=== PATIENT | female | born 1940 | race Caucasian/White ===

== ENCOUNTER 2017-05-20 19:32 | Inpatient (IN) | payer MEDICARE ==
[~2017-05-20] VITALS: Ht 157.5 cm; Wt 84.1 kg
[2017-05-20 20:45] LABS: BASOPHILS 0.1 % (0-2); EOSINOPHILS 0 % (0-7); HEMATOCRIT 34.5 % (36.0-48.0); IMMATURE GRANULOCYTES 0.4 % (0-5); LYMPHOCYTES 3.2 % (15-50); MCH 27.9 pg (26.0-34.0); MCHC 31.9 g/dL (31.0-37.0); MCV 87.6 fL (80.0-100.0); MEAN PLATELET VOLUME 9.9 fL (7.4-10.4); MONOCYTES 2.9 % (2-11); NEUTROPHILS 93.4 % (40-80); PLATELET COUNT 297 10x3/uL (130-400); RBC 3.94 10x6/uL (4.00-5.40); RDW 13.5 % (11.5-14.5); WBC 17.3 10x3/uL (4.8-10.8)
[2017-05-20 20:59] LABS: ALBUMIN 3.3 g/dL (3.4-5.0); ANION GAP 14.9 mmol/L (8-16); BILIRUBIN - TOTAL 0.66 mg/dL (0.2-1.3); CALCIUM 8.8 mg/dL (8.5-10.1); CARBON DIOXIDE 24.6 mmol/L (21.0-32.0); CREATININE - SERUM 0.9 mg/dL (0.6-1.3); POTASSIUM - SERUM 4.5 mmol/L (3.5-5.1); PROTEIN - SERUM 6.9 g/dL (6.4-8.2)
[2017-05-20] MEDS ORDERED: MOBIC7.5 MG PO (23:44)
[2017-05-20] MEDS ORDERED: FOLBIC RF TABL1 EACH PO (23:45)
[2017-05-20] MEDS ORDERED: BAYER CHEWABLE81 MG PO (23:45)
[2017-05-21 00:18] VITALS: BP 102/51; Ht 157.5 cm; Wt 84.1 kg
[2017-05-21 04:00] VITALS: BP 122/59
[2017-05-21 05:50] LABS: BASOPHILS 0.1 % (0-2); EOSINOPHILS 0.3 % (0-7); HEMATOCRIT 28.5 % (36.0-48.0); IMMATURE GRANULOCYTES 0.5 % (0-5); LYMPHOCYTES 12.6 % (15-50); MCH 27.8 pg (26.0-34.0); MCHC 31.6 g/dL (31.0-37.0); MEAN PLATELET VOLUME 10.5 fL (7.4-10.4); NEUTROPHILS 80.5 % (40-80); PLATELET COUNT 252 10x3/uL (130-400); RBC 3.24 10x6/uL (4.00-5.40); RDW 13.8 % (11.5-14.5); WBC 14.7 10x3/uL (4.8-10.8)
[2017-05-21 05:55] LABS: ALBUMIN 2.7 g/dL (3.4-5.0); ANION GAP 13.7 mmol/L (8-16); BILIRUBIN - TOTAL 0.53 mg/dL (0.2-1.3); CALCIUM 8.2 mg/dL (8.5-10.1); CARBON DIOXIDE 23.6 mmol/L (21.0-32.0); POTASSIUM - SERUM 4.3 mmol/L (3.5-5.1); PROTEIN - SERUM 6.2 g/dL (6.4-8.2)
--- NOTE | 2017-05-21 07:30 | NUR ---
RECIEVED PT DURING WALKING ROUNDS, PT RESTING IN BED WITH COMPLAINTS OF PAIN OR DISCOMFORT AT THIS TIME. ASSESSMENT DONE PER FLOWSHEET. BED IN LOW POSITION AND CALL LIGHT WITHIN REACH.
[2017-05-21 09:12] VITALS: BP 129/74
[2017-05-21 11:58] LABS: BASOPHILS 0.1 % (0-2); EOSINOPHILS 0.4 % (0-7); HEMATOCRIT 30.6 % (36.0-48.0); HEMOGLOBIN 9.9 g/dL (12-16); IMMATURE GRANULOCYTES 0.4 % (0-5); LYMPHOCYTES 14.6 % (15-50); MCH 28.2 pg (26.0-34.0); MCHC 32.4 g/dL (31.0-37.0); MCV 87.2 fL (80.0-100.0); MEAN PLATELET VOLUME 9.8 fL (7.4-10.4); NEUTROPHILS 78.5 % (40-80); PLATELET COUNT 254 10x3/uL (130-400); RBC 3.51 10x6/uL (4.00-5.40); RDW 13.7 % (11.5-14.5); WBC 15.1 10x3/uL (4.8-10.8)
--- NOTE | 2017-05-21 14:26 | NUR ---
CHECKED PT HCT AT THIS TIME, ABOVE PARAMETERS. WILL CONTINUE TO MONITOR.
[2017-05-21 20:00] VITALS: BP 91/40
[2017-05-22] VITALS (14 sets, daily range): BP systolic 101–141; BP diastolic 37–72
--- NOTE | 2017-05-22 01:00 | NUR ---
PRBC'S INITIATED AT THIS TIME. VSS. INSECT CONTROL AIDE GOOD TO MONITOR. VISITOR AT BEDSIDE. SIDE RAILS X 2. BED IS LOW. CALL LIGHT IN REACH.
--- NOTE | 2017-05-22 01:00 | NUR ---
PATIENT STARTED 1 UNIT PRBC IN LEFT HAND PIV. VSS, AFEBRILE. UNIT OF BLOOD CROSS CHECKED WITH YUDELKA DAS.
[2017-05-22 05:36] LABS: BASOPHILS 0.4 % (0-2); EOSINOPHILS 4.3 % (0-7); HEMATOCRIT 28.1 % (36.0-48.0); HEMOGLOBIN 9.4 g/dL (12-16); IMMATURE GRANULOCYTES 0.4 % (0-5); LYMPHOCYTES 27.6 % (15-50); MCHC 33.5 g/dL (31.0-37.0); MCV 86.7 fL (80.0-100.0); MEAN PLATELET VOLUME 9.8 fL (7.4-10.4); MONOCYTES 6.1 % (2-11); NEUTROPHILS 61.2 % (40-80); RBC 3.24 10x6/uL (4.00-5.40)
[2017-05-22 05:40] LABS: PLATELET COUNT 190 10x3/uL (130-400); WBC 8.3 10x3/uL (4.8-10.8)
[2017-05-22 05:53] LABS: ANION GAP 10.8 mmol/L (8-16); CALCIUM 8.1 mg/dL (8.5-10.1); CARBON DIOXIDE 25.1 mmol/L (21.0-32.0); CREATININE - SERUM 0.8 mg/dL (0.6-1.3); POTASSIUM - SERUM 3.9 mmol/L (3.5-5.1)
[2017-05-22 05:55] LABS: INR 1.13 (0.85-1.17); PROTIME 14.3 SECONDS (11.6-15.0)
--- NOTE | 2017-05-22 07:50 | NUR ---
ASSESSMENT COMPLETE. IV TO L HAND PATENT. NS INFUSING AT 100 CC/HR AND PROTONIX AT 10 CC/HR VIA PUMP. NPO FOR EGD TODAY. FAMILY AT BEDSIDE. DENIES ANY NEEDS AT PRESENT.
--- NOTE | 2017-05-22 11:30 | NUR ---
COMPLAINING OF DIZZINESS AND BLURRY VISION. STATES THAT DIZZINESS STARTED AFTER LOOKING AT DAUGHTER'S PHONE. BLOOD SUGAR 100. VSJulisa. CECILIA SÁNCHEZ NOTIFIED.
--- NOTE | 2017-05-22 11:35 | NUR ---
INSTRUCTED PATIENT TO REST IN BED UNTIL DIZZINESS RESOLVES. BLOOD PRESSURE 146/61.
--- NOTE | 2017-05-22 12:45 | NUR ---
DENIES ANY DIZZINESS AT THIS TIME. RESTING QUIETLY IN BED. BP 107/57.
--- NOTE | 2017-05-22 16:12 | NUR ---
AWAITING EGD TO BE DONE. FAMILY AT BEDSIDE.
--- NOTE | 2017-05-22 16:45 | NUR ---
OFF FLOOR TO GI LAB VIA BED.
--- NOTE | 2017-05-22 18:00 | NUR ---
RETURNED TO ROOM FROM GI LAB VIA BED. FAMILY AT BEDSIDE. AWAKE AND ALERT. DENIES ANY NEEDS AT THIS TIME.
--- NOTE | 2017-05-22 20:00 | NUR ---
ASSESSMENT PER FLOWSHEET. IV PATENT LEFT WRIST OF NS AT 100CC'S/HR PROTONIX GTT AT 10CC'S/HR. SITE CLEAR.DAUGHTER IN ROOM. RESTING QUIETLY DENIES NEEDS.
--- NOTE | 2017-05-22 21:00 | NUR ---
MEDS GIVEN PER MAR.
--- NOTE | 2017-05-22 22:00 | NUR ---
RESULTS OF H&H SHOWS HCT 27.1.
--- NOTE | 2017-05-22 22:45 | NUR ---
IV SWOLLEN REMOVED WITH CATH INTACT. RESITED IN RT FOREARM #22G X1 ATTEMPT. RESUMED FLUIDS.
--- NOTE | 2017-05-22 23:10 | NUR ---
ONE UNIT OF PRBC'S HUNG PER HOSPITAL PROTOCAL. BLOOD PERMIT ALREADY SIGNED AND ON CHART. MONITORING VITAL SIGNS DURING INFUSION.
--- NOTE | 2017-05-23 | NUR ---
BLOOD CONTINUES NO REACTION SEEN.
--- NOTE | 2017-05-23 02:20 | NUR ---
BLOOD COMPLETED NO REACTION NOTED. NS AT KVO TO FLUSH TUBING.
--- NOTE | 2017-05-23 03:15 | NUR ---
BLOOD SET UP REMOVED, IV FLUIDS OF NS RESUMED AT 100CC'S/HR PROTONIX GTT RESUMED AT 10CC'S/HR.
[2017-05-23 04:03] VITALS: BP 148/72
--- NOTE | 2017-05-23 04:10 | NUR ---
EYES CLOSED RESPIRATIONS WITH EASE AND UNLABORED.
[2017-05-23 05:50] LABS: BASOPHILS 0.3 % (0-2); EOSINOPHILS 4.5 % (0-7); HEMATOCRIT 29.6 % (36.0-48.0); HEMOGLOBIN 9.7 g/dL (12-16); IMMATURE GRANULOCYTES 0.5 % (0-5); LYMPHOCYTES 25.3 % (15-50); MCH 28.3 pg (26.0-34.0); MCHC 32.8 g/dL (31.0-37.0); MCV 86.3 fL (80.0-100.0); MEAN PLATELET VOLUME 9.7 fL (7.4-10.4); MONOCYTES 7.3 % (2-11); NEUTROPHILS 62.1 % (40-80); PLATELET COUNT 156 10x3/uL (130-400); RBC 3.43 10x6/uL (4.00-5.40); RDW 14.3 % (11.5-14.5); WBC 6.3 10x3/uL (4.8-10.8)
[2017-05-23 06:18] LABS: ALBUMIN 2.6 g/dL (3.4-5.0); ALKALINE PHOSPHATASE 61 U/L (46-116); ALT (SGPT) 15 U/L (10-68); BILIRUBIN - TOTAL 0.67 mg/dL (0.2-1.3); CALC OSMOLALITY 283 mosm/kg (275-300); CALCIUM 8.2 mg/dL (8.5-10.1); CARBON DIOXIDE 25.1 mmol/L (21.0-32.0); CHLORIDE - SERUM 110 mmol/L (98-107); CREATININE - SERUM 0.7 mg/dL (0.6-1.3); GLUCOSE 95 mg/dL (74-106); POTASSIUM - SERUM 3.6 mmol/L (3.5-5.1); PROTEIN - SERUM 5.9 g/dL (6.4-8.2); SODIUM 142 mmol/L (136-145); eGFR NON AFRICAN AMERICAN 86 mL/min (90-120)
[2017-05-23 06:19] LABS: UREA NITROGEN 15 mg/dL (7-18)
--- NOTE | 2017-05-23 07:55 | NUR ---
ASSESSMENT COMPLETE. IV TO R FA PATENT. NS INFUSING AT 100 CC/HR AND PROTONIX INFUSING AT 10 CC/HR VIA PUMP. DENIES ANY NEEDS AT PRESENT. FAMILY AT BEDSIDE.
[2017-05-23 08:43] VITALS: BP 138/62
--- NOTE | 2017-05-23 10:14 | CN ---
PATIENT NAME:IAN TOUSSAINT MEDICAL RECORD: [id number] : 42 LOCATION:[facility] ADMIT DATE: 05/20/17 ACCOUNT: [id number] CONSULTING PHYSICIAN: SHAHRIAR DAN MD REFERRING PHYSICIAN: RY LOVE MD DATE OF CONSULTATION: 05/21/2017 Gastroenterology Consultation REFERRING PHYSICIAN: Ry Love MD FIRST AID NURSE: Judi Kelly MD HISTORY OF PRESENT ILLNESS: The patient is a 77-year-old white female of Dr. Hoyt, who was admitted last night with 1-day history of melena and hematemesis of coffee-ground material. She has no history of past GI bleed or ulcer disease, but she had been on meloxicam for osteoarthritis. She developed the above symptoms and presented to the ER. She was admitted for further evaluation. She apparently had a colonoscopy by Dr. Kelly about 6 months ago that was unremarkable. PAST MEDICAL HISTORY: As above. PAST SURGICAL HISTORY: Remarkable for cholecystectomy and hysterectomy. ALLERGIES: No known drug allergies. HOME MEDICATIONS: Include meloxicam. FAMILY HISTORY: Negative for GI disease. REVIEW OF SYSTEMS: Noncontributory other than in the HPI. SOCIAL HISTORY: The patient is a nonsmoker, nondrinker. PHYSICAL EXAMINATION: GENERAL: Reveals an elderly white female, in no acute distress. VITAL SIGNS: Stable. She is afebrile. CHEST: Clear. HEART: Regular rate and rhythm. ABDOMEN: Soft, nontender. EXTREMITIES: No edema. LABORATORY DATA: Reveals normal electrolytes, BUN 50, creatinine 0.9. Liver enzymes are normal. Amylase and lipase are normal. White cell count 17,000, hematocrit 34, platelet count 297,000. She is heme positive. IMPRESSION: 1. Apparent upper gastrointestinal bleed, most likely due to meloxicam-induced ulcer. 2. Anemia secondary to #1. RECOMMENDATION: 1. High dose Protonix for now. 2. Clear liquid diet. CONSULT REPORT [id number] AIN TOUSSAINT 3. Obviously avoid all NSAIDs. 4. Transfuse as needed. 5. EGD tomorrow with Dr. Kelly. TRANSINT:[id number] Voice Confirmation ID: [id number] DOCUMENT ID: [id number] SHAHRIAR DAN MD at 1014 CC: RY LOVE MD and JUDI KELLY MD [id number] DICTATION DATE: 05/21/17 1315 LUMBER CARRIER: 05/21/17 1354 ADM IN [facility] [address] [place] [address]
--- NOTE | 2017-05-23 12:00 | NUR ---
NO CHANGES NOTED AT THIS TIME.
[2017-05-23 13:56] VITALS: BP 145/70
[2017-05-23 16:17] VITALS: BP 140/70
--- NOTE | 2017-05-23 17:36 | NUR ---
Patient Name: IAN TOUSSAINT Admission Status: ER Accout number: [id number] Admission Date: 05-20-2017 : 1941 Admission Diagnosis:GASTROINTESTINAL HEMORRHAGE, UNSPECIFIED Attending: KATE Current LOS: 3 Anticipated DC Date: 05-26-2017 Planned Disposition: Home Primary Insurance: [employer] CHOICE PPO MCR [employer] Discharge Planning Comments: CM MET WITH PATIENT AND SPOUSE (TALISHA) REGARDING D/C NEEDS AND PLANS. PATIENT STATED SHE LIVES WITH HER SPOUSE AND THEY HAVE 2 STEPS TO ENTER HOME AND DOES NOT HAVE TO USE BASEMENT. PATIENT STATED SHE IS INDEPENDENT WITH HER CARE AND HAS A WALKER, BS COMMODE, AND SHOWER CHAIR AT HOME. PATIENTS PCP IS DR. CROSS AND [facility] IS [facility]. PATIENT DOES NOT WANT HOME HEALTH AT THIS TIME. CM WILL CONTINUE TO FOLLOW PATIENT WITH D/C NEEDS AND PLANS. PCP [facility]- [phone] TALISHA (SPOUSE) [phone] STEFFANIE () [phone] Package Lift Operator: Raisa Archibald Is the patient Alert and Oriented? Yes 0 * How many steps to enter\exit or inside your home? 2 0 * PCP DR. CROSS 0 * [facility] [place] 0 * Preadmission Environment Home with Family 0 * ADLs Independent 0 * Equipment Bedside Commode Shower Chair Walker 0 * List name and contact numbers for known caregivers / representatives who currently or will assist patient after discharge: TALISHA (SPOUSE) [phone] STEFFANIE 0 * Community resources currently utilized None 0 * Additional services required to return to the preadmission environment? Yes 0 * Can the patient safely return to the preadmission environment? Yes 0 * Has this patient been hospitalized within the prior 30 days at any hospital? No 0 Grand Total: 0
--- NOTE | 2017-05-23 17:55 | NUR ---
VISITING WITH FAMILY. DENIES ANY NEEDS AT PRESENT.
[2017-05-23 20:00] VITALS: BP 111/78
--- NOTE | 2017-05-23 20:00 | NUR ---
ASSESSMENT PER FLOWSHEET. PT SITTING UPRIGHT IN CHAIR AT BEDSIDE SPOUSE AT BEDSIDE. IV PATENT RT FOREARM OF NS AT 100CC'S/HR SITE CLEAR.
--- NOTE | 2017-05-23 21:00 | NUR ---
MEDS GIVEN PER MAR.
--- NOTE | 2017-05-23 22:00 | NUR ---
RESTING QUIETLY IN BED SPOUSE SITTING IN CHAIR AT BEDSIDE. SR UP X2 CALL LIGHT WITHIN REACH.
[2017-05-24] VITALS: BP 128/59
--- NOTE | 2017-05-24 | NUR ---
EYES CLOSED RESPIRATIONS WITH EASE AND UNLABORED.
--- NOTE | 2017-05-24 03:00 | NUR ---
RESTING QUIETLY EYES CLOSED RESPIRATIONS WITH EASE AND UNLABORED.
[2017-05-24 03:47] VITALS: BP 157/80
[2017-05-24 05:17] LABS: BASOPHILS 0.3 % (0-2); HEMATOCRIT 30.9 % (36.0-48.0); HEMOGLOBIN 10.1 g/dL (12-16); IMMATURE GRANULOCYTES 0.3 % (0-5); MCH 28.4 pg (26.0-34.0); MCHC 32.7 g/dL (31.0-37.0); MCV 86.8 fL (80.0-100.0); MEAN PLATELET VOLUME 10.3 fL (7.4-10.4); MONOCYTES 6.8 % (2-11); NEUTROPHILS 57.6 % (40-80); PLATELET COUNT 186 10x3/uL (130-400); RBC 3.56 10x6/uL (4.00-5.40); RDW 14.2 % (11.5-14.5); WBC 6.2 10x3/uL (4.8-10.8)
[2017-05-24 05:37] LABS: ALBUMIN 2.8 g/dL (3.4-5.0); ALKALINE PHOSPHATASE 69 U/L (46-116); ALT (SGPT) 15 U/L (10-68); CALC OSMOLALITY 283 mosm/kg (275-300); CALCIUM 8.2 mg/dL (8.5-10.1); CARBON DIOXIDE 25.2 mmol/L (21.0-32.0); CHLORIDE - SERUM 108 mmol/L (98-107); CREATININE - SERUM 0.7 mg/dL (0.6-1.3); GLUCOSE 93 mg/dL (74-106); POTASSIUM - SERUM 3.9 mmol/L (3.5-5.1); PROTEIN - SERUM 5.6 g/dL (6.4-8.2); SODIUM 143 mmol/L (136-145); eGFR NON AFRICAN AMERICAN 86 mL/min (90-120)
[2017-05-24 05:42] LABS: UREA NITROGEN 10 mg/dL (7-18)
--- NOTE | 2017-05-24 06:39 | NUR ---
MEDS GIVEN PER DEC. RESTING QUIETLY NO CHANGES IN ASSESSMENT.
[2017-05-24 08:42] VITALS: BP 123/63
[2017-05-24 11:58] VITALS: BP 142/64
--- NOTE | 2017-05-24 14:45 | NUR ---
PT LAYING FLAT IN BED, EYES CLOSED. NO VISABLE SINGS OF PAIN OR DISCOMFORT AT THIS TIME. BED IN LOW POSITION AND CALL LIGHT WITHIN REACH. WILL CONTINUE TO MONITOR.
[2017-05-24 15:09] VITALS: BP 121/57
--- NOTE | 2017-05-24 16:16 | NUR ---
CARAFATE PO. NEW BAG OF PROTONIX.
[2017-05-24 20:00] VITALS: BP 106/63
--- NOTE | 2017-05-24 20:00 | NUR ---
ASSESSMENT PER FLOWSHEET. SR UP X2 CALL LIGHT WITHIN REACH. IV PATENT RT ARM OF NS AT 30CC'S/HR PROTONIX GTT AT 10CC'S PER HOUR. UP WITH HELP TO BR VOIDS WELL.
--- NOTE | 2017-05-24 21:30 | NUR ---
MEDS GIVEN PER MAR. SPOUSE AT BEDSIDE. SR UP X2 CALL LIGHT WITHIN REACH.
[2017-05-25] VITALS: BP 124/60
--- NOTE | 2017-05-25 | NUR ---
EYES CLOSED RESPIRATIONS WITH EASE AND UNLABORED.
[2017-05-25 04:00] VITALS: BP 132/62
[2017-05-25 05:59] LABS: BASOPHILS 0.4 % (0-2); EOSINOPHILS 5.8 % (0-7); HEMATOCRIT 32.1 % (36.0-48.0); HEMOGLOBIN 10.5 g/dL (12-16); IMMATURE GRANULOCYTES 0.4 % (0-5); LYMPHOCYTES 26.7 % (15-50); MCH 28.3 pg (26.0-34.0); MCHC 32.7 g/dL (31.0-37.0); MCV 86.5 fL (80.0-100.0); MONOCYTES 6.9 % (2-11); NEUTROPHILS 59.8 % (40-80); PLATELET COUNT 216 10x3/uL (130-400); RBC 3.71 10x6/uL (4.00-5.40); RDW 14.2 % (11.5-14.5); WBC 6.9 10x3/uL (4.8-10.8)
[2017-05-25 06:18] LABS: ALBUMIN 2.8 g/dL (3.4-5.0); ALKALINE PHOSPHATASE 70 U/L (46-116); ALT (SGPT) 16 U/L (10-68); CALC OSMOLALITY 280 mosm/kg (275-300); CALCIUM 8.5 mg/dL (8.5-10.1); CARBON DIOXIDE 26.1 mmol/L (21.0-32.0); CHLORIDE - SERUM 109 mmol/L (98-107); CREATININE - SERUM 0.7 mg/dL (0.6-1.3); GLUCOSE 97 mg/dL (74-106); POTASSIUM - SERUM 3.7 mmol/L (3.5-5.1); PROTEIN - SERUM 6.1 g/dL (6.4-8.2); SODIUM 142 mmol/L (136-145); eGFR NON AFRICAN AMERICAN 86 mL/min (90-120)
[2017-05-25 06:31] LABS: UREA NITROGEN 6 mg/dL (7-18)
[2017-05-25 08:09] VITALS: BP 148/62
[2017-05-25] MEDS ORDERED: PEPCID40 MG PO (11:18)
[2017-05-25] MEDS ORDERED: OMEPRAZOLE40 MG PO (11:19)
[2017-05-25] MEDS ORDERED: CARAFATE1 G/10 ML PO (11:20)
[2017-05-25 11:44] VITALS: BP 158/72
--- NOTE | 2017-05-25 13:50 | NUR ---
CM REASSESSMENT NOTE: PATIENT IS DISCHARGING HOME TODAY BY PRIVATE CAR (GRANDDAUGHTER DRIVING). PATIENT DENIED HOME HEALTH OR ANY OTHER NEEDS FOR DISCHARGE. FAMILY AT BEDSIDE. HOUSE CALLS TO FOLLOW UP.
--- NOTE | 2017-05-25 14:16 | NUR ---
IV DCD WITH CATH INTACCT.DISCHARGE INSTRUCTIONS,STATES UNDERSTANDING.WAITING ON RIDE HOME.
--- NOTE | 2017-05-25 16:00 | NUR ---
LEFT UNIT VIA WHEELCHAIR FOR TRANSPORT HOME
== END 2017-05-25 16:00 | disposition home or self-care (01) | DRG 369 ==
LOC: D.ER 19:32 → D.MS 23:10
PROVIDERS: Family Medicine; Internal Medicine Gastroenterology; ADMIT Family Medicine
PROC: 0DB68ZX Excision of Stomach, Via Natural or Artificial Opening Endoscopic, Diagnostic (ICD-10-PCS; principal; 2017-05-22 16:00)
PROC: 3E0G8TZ Introduction of Destructive Agent into Upper GI, Via Natural or Artificial Opening Endoscopic (ICD-10-PCS; principal; 2017-05-22 16:00)
DX: K22.6 Gastro-esophageal laceration-hemorrhage syndrome (principal); D62 Acute posthemorrhagic anemia; K44.9 Diaphragmatic hernia without obstruction or gangrene; M25.562 Pain in left knee; K25.9 Gastric ulcer, unspecified as acute or chronic, without hemorrhage or perforation; K29.80 Duodenitis without bleeding; K22.2 Esophageal obstruction